=== PATIENT | female | born 1990 | race Caucasian/White ===

== ENCOUNTER 2023-02-23 15:01 | Outpatient (CLI) | payer BC, SELFPAY ==
--- NOTE | 2023-02-23 15:00 | CRLHL7_ITS ---
For Patients: As a result of the Century Cures Act, medical imaging exams and procedure reports are released immediately into your electronic medical record. You may view this report before your referring provider. If you have questions, please contact your health care provider. INDICATION: Bleeding and passing clots in early . TECHNIQUE: Ultrasound OB pelvis endovaginal. Real-time fuentes-scale imaging of the pelvis was performed. COMPARISON: None. FINDINGS: No intrauterine gestation identified. Normal endometrial stripe thickness measuring 1 cm. There are 2 ovoid areas of heterogeneous myometrial echotexture, which could represent small fibroids, 1 is in the right anterior fundus measuring 2.5 cm and the other is in the left posterior fundus measuring 1.9 cm. The anterior fibroid exerts mild mass effect on the endometrium. The posterior fibroid is myometrial. Normal ovaries. The right ovary measures 4.5 x 2.5 x 3.3 cm and the left ovary measures 2.8 x 1.4 x 2.9 cm. No significant free fluid. IMPRESSION: No intrauterine gestation identified. Normal endometrial stripe thickness. No adnexal mass or free fluid. Probable 2 fibroids within the uterus, as described above. Dictated by Jayden Hanson MD @ 02/24/2023 1:15:17 AM (Electronically Signed)
== END 2023-02-23 15:02 | disposition home or self-care (01) ==
LOC: US 15:01
PROVIDERS: PCP Family Medicine; Visit Provider Obstetrics & Gynecology
DX: O20.9 Hemorrhage in early pregnancy, unspecified (principal); O34.10 Maternal care for benign tumor of corpus uteri, unspecified trimester; Z3A.00 Weeks of gestation of pregnancy not specified
CPT/HCPCS: 76817; 84702; 86850; 86900; 86901

== ENCOUNTER 2023-02-27 15:36 | Emergency (ER) | payer BC, SELFPAY ==
[2023-02-27] VITALS (25 sets, daily range): BP systolic 92–116; BP diastolic 60–76; PULSE 61–90; RESP 18; TEMP 36.4; O2SAT 96–100; BMI 24.0
--- NOTE | 2023-02-27 15:47 | CRLHL7_ITS ---
For Patients: As a result of the Century Cures Act, medical imaging exams and procedure reports are released immediately into your electronic medical record. You may view this report before your referring provider. If you have questions, please contact your health care provider. Indication: Fall, back pain Technique: Noncontrast CT lumbar spine Please note that all CT scans at this facility use dose modulation, iterative reconstruction, and/or weight-based dosing when appropriate to reduce radiation dose to as low as reasonably achievable. Comparison: None Findings: No fracture. Mild bulging of the L4-5 disc without foraminal stenosis. No paraspinal mass. No pars defect or spondylolisthesis. Spinous processes are intact as are the transverse processes. Impression: No lumbar spine fracture. Please note that all CT scans at this facility use dose modulation, iterative reconstruction, and/or weight-based dosing when appropriate to reduce radiation dose to as low as reasonably achievable. Dictated by Samir Cain MD @ 02/27/2023 4:20:43 PM (Electronically Signed)
--- NOTE | 2023-02-27 15:50 | CRLHL7_ITS ---
For Patients: As a result of the Century Cures Act, medical imaging exams and procedure reports are released immediately into your electronic medical record. You may view this report before your referring provider. If you have questions, please contact your health care provider. Indication: fall and R hip, pelvis pain Technique: Postcontrast CT abdomen and pelvis. 62 cc Isovue 370 intravenous contrast. Please note that all CT scans at this facility use dose modulation, iterative reconstruction, and/or weight-based dosing when appropriate to reduce radiation dose to as low as reasonably achievable. Comparison: Pelvic ultrasound 02/23/2023 Findings: Lung bases are clear. No free air. There is a small cyst or hemangioma within the left hepatic lobe measuring 7 millimeters. Normal pancreas, spleen, adrenal glands, kidneys and gallbladder. No bowel obstruction or excess pelvic free fluid. Uterine fibroids again noted. Collapsing right ovarian cyst in the posterior cul-de-sac. Bladder normal. No fracture. Impression: No traumatic injury to the abdomen or pelvis. Please note that all CT scans at this facility use dose modulation, iterative reconstruction, and/or weight-based dosing when appropriate to reduce radiation dose to as low as reasonably achievable. Dictated by Samir Cain MD @ 02/27/2023 4:26:52 PM (Electronically Signed)
[2023-02-27] MEDS: LORazepam 2 MG/ML inj 0.5 MG IVP (16:17)
[2023-02-27] MEDS: 0.9 % SODIUM CHLORIDE 1000 ml 1,000 ML IV (16:18)
[2023-02-27] MEDS: fentaNYL 100 MCG/2 ML inj 50 MCG IVP (16:18)
[2023-02-27 16:54] LABS: Appearance Urine Clear (Clear); Bilirubin Urine Negative (Negative); Blood Urine 2+ (Negative); Color Urine Yellow (Yellow); Glucose Urine Negative (Negative); Ketones Urine Negative (Negative); Leukocyte Esterase Urine Trace (Negative); Nitrite Urine Negative (Negative); Protein Urine Negative (Negative); Urobilinogen Urine 0.2 (0.2-1.0); pH Urine 7.5 (5.0-8.5)
[2023-02-27 17:25] LABS: RBC Urine 0-2 (0-2); WBC Urine 0-2 (0-5)
[2023-02-27] MEDS: KETOROLAC 30 MG/ML inj IVP (17:50)
--- NOTE | 2023-02-27 18:45 | ED_ITS ---
HPI - General Adult General Chief complaint: Fall/Minor Trauma Stated complaint: Fell off ladder Time Seen by Provider: 02/27/23 15:47 History of Present Illness HPI narrative: Fell approx 8ft from 6 ft ladder. c/o right hip and back pain 32-year-old woman brought by to emergency department where upon entry trauma team activation is called. She is observed to be breathing easily in transfers gingerly to exam bed. Clearly uncomfortable in the right side. Sounds as though she fell from a ladder she estimates about 8 ft up while painting. Fell onto the right-side injuring elbow in the process as well. Not having difficulty breathing. Mov ement continues to hurt. She denies striking her head nor was there a loss of consciousness. Mild nausea comes and goes. Initially does not feel she needs anything for pain or nausea. Recent health history includes spontaneous miscarriage. Denies abdominal pain. Does have some pain in the right hip and low back, right elbow as noted. Past medical allergies medications reviewed. Related Data Home Medications Medication Instructions Recorded Confirmed cetirizine 10 mg tablet 10 mg PO DAILY 06/24/22 02/23/23 Previous Rx's Medication Instructions Recorded fluticasone propionate 50 2 spray intranasal QDAY #16 grams 06/24/22 mcg/actuation nasal spray,suspension Allergies Allergy/AdvReac Type Severity Reaction Status Date / Time No Known Allergies Allergy Unknown Verified 02/23/23 16:15 Review of Systems Status of ROS: Reports: 6 or more systems reviewed and unremarkable except as noted in History and below [facility] Medical History Sprain of ankle ?S93.409A - Sprain of unspecified ligament of unspecified ankle, initial e ncounter (ICD-10) Second degree perineal laceration during delivery ?O70.1 - Second degree perineal laceration during delivery (ICD-10) Normal spontaneous vaginal delivery ?O80 - Encounter for full-term uncomplicated delivery (ICD-10) History of fracture of clavicle ?Z87.81 - Personal history of (healed) traumatic fracture (ICD-10) Surgical History History of adenoidectomy (1997) ?Z90.89 - Acquired absence of other organs (ICD-10) Family History Aunt Thyroid disease Other Cancer Social History Smoking Status: Never smoker Do you use any of these nicotine containing products: None Second hand tobacco smoke exposure: No How often do you have a drink containing alcohol: never AUDIT-C Alcohol total score: 0 Non-prescribed substance use: denies use Little interest or pleasure in doing things: not at all Feeling down, depressed, or hopeless: several days service: No Exam Narrative: Exam Narrative: Initial vitals are noted. Breathing easily with open airway No evidence of bleeding on her person other than mild superficial scrape at the right elbow. GCS of 15 with brisk and reactive pupils. She is moving all extremities with what I think is full strength but soreness to transfer is noted this bears weight more on the right leg. She is a little tremulous head looks to be atraumatic. Becomes tearful acknowledging her recent miscarriage. Neck is supple nontender. She does not have tenderness in the midback until just above the sacrum where she is generally sore in these areas. I do not see deformity swelling or erythema. No pain to palpation over the clavicles or shoulder her upper chest. Abdomen is soft nontender no indication of injury. No pain to palpation or indication of injury on her extremities which are well perfused, until right elbow where there is an evolving bruise/hematoma on the medial aspect. She extend and flex without significant pain and supinates and rotates the forearm here without notable pain. Most pain is to palpation of this bruise. Pelvis is a little sore to palpation over the right hip area generally. There is a proud/scarred tissue at the right hip noninflamed. Heart with regular rate and rhythm without murmur rub or gallop. Const: Vital Signs, click to edit/add: Vital Signs - 24 hr 02/27/23 15:45 02/27/23 16:21 02/27/23 16:22 Temperature 97.6 F Pulse Rate 86 83 Respiratory Rate 18 Blood Pressure 99/69 Blood Pressure [Ri ght Upper Arm] 102/76 Pulse Oximetry 100 100 100 Oxygen Delivery Me thod Room Air 02/27/23 16:30 02/27/23 16:31 02/27/23 16:32 Temperature Pulse Rate 66 64 63 Respiratory Rate Blood Pressure 106/73 Blood Pressure [Ri ght Upper Arm] Pulse Oximetry 100 100 100 Oxygen Delivery Me thod 02/27/23 16:40 02/27/23 16:41 02/27/23 16:52 Temperature Pulse Rate 66 90 Respiratory Rate Blood Pressure 108/71 Blood Pressure [Ri ght Upper Arm] Pulse Oximetry 100 99 Oxygen Delivery Me thod 02/27/23 16:54 02/27/23 17:00 02/27/23 17:01 Temperature Pulse Rate 71 72 66 Respiratory Rate Blood Pressure 116/69 99/63 Blood Pressure [Ri ght Upper Arm] Pulse Oximetry 100 100 100 Oxygen Delivery Me thod 02/27/23 17:02 02/27/23 17:10 02/27/23 17:11 Temperature Pulse Rate 64 61 77 Respiratory Rate Blood Pressure 106/68 Blood Pressure [Ri ght Upper Arm] Pulse Oximetry 100 100 100 Oxygen Delivery Me thod 02/27/23 17:12 02/27/23 17:20 02/27/23 17:21 Temperature Pulse Rate 66 65 67 Respiratory Rate Blood Pressure 104/68 Blood Pressure [Ri ght Upper Arm] Pulse Oximetry 100 100 99 Oxygen Delivery Me thod 02/27/23 17:30 02/27/23 17:31 02/27/23 17:32 Temperature Pulse Rate 70 70 76 Respiratory Rate Blood Pressure 110/60 Blood Pressure [Ri ght Upper Arm] Pulse Oximetry 99 99 98 Oxygen Delivery Me thod 02/27/23 17:40 02/27/23 17:41 02/27/23 17:50 Temperature Pulse Rate 77 77 81 Respiratory Rate Blood Pressure 107/64 Blood Pressure [Ri ght Upper Arm] Pulse Oximetry 96 97 97 Oxygen Delivery Me thod 02/27/23 17:51 Temperature Pulse Rate 75 Respiratory Rate Blood Pressure 92/68 Blood Pressure [Ri ght Upper Arm] Pulse Oximetry 99 Oxygen Delivery Me thod Course Vital Signs Vital signs: Initial Vital Signs Temperature 97.6 F 02/27/23 15:45 Temperature Source Temporal Artery Scan 02/27/23 15:45 Respiratory Rate 18 02/27/23 15:45 Blood Pressure 102/76 02/27/23 15:45 Blood Pressure Mean 84 02/27/23 15:45 Blood Pressure Position Standing 02/27/23 15:45 Pulse Oximetry 100 02/27/23 15:45 Oxygen Delivery Method Room Air 02/27/23 15:45 Vital Signs Temperature 97.6 F 02/27/23 15:45 Respiratory Rate 18 02/27/23 15:45 Blood Pressure 102/76 02/27/23 15:45 Pulse Oximetry 100 02/27/23 15:45 Oxygen Delivery Method Room Air 02/27/23 15:45 Temperature 97.6 F 02/27/23 15:45 Pulse Rate 75 02/27/23 17:51 Respiratory Rate 18 02/27/23 15:45 Blood Pressure 92/68 02/27/23 17:51 Pulse Oximetry 99 02/27/23 17:51 Oxygen Delivery Method Room Air 02/27/23 15:45 Medical Decision Making MDM Narrative Medical decision making narrative: Given mechanism it do think some imaging is necessary. I do not suspect that has significant internal hemorrhage and will be sending for contrasted CT scan here. IV is established. Receives a L normal saline. CT lumbar spine and abdomen pelvis with contrast. Analysis as well. Elbow given painless supination, pronation, flexion and extension I think is unlikely to have a fracture. She is in agreement with deferring imaging here. Does later request some pain medication. Ordered for 0.5 mg lorazepam and 50 mcg of fentanyl. This does help pain pain returns and shortly before departure is given IV ketorolac as well. Overall is improved acknowledges that she is going be very sore. Imaging of lumbar spine and contrasted abdomen pelvis notable for mildly bulging disc at L4-5, collapsing ovarian cyst and small liver cyst or hemangioma. No traumatic bleeding or otherwise was identified nor was there any bony abnormality. Overall improved during time in emergency department but still sore. I suspect that there are some muscle and ligamentous strain/sprains not clearly identified at this point. See patient discharge plan Lab Data Lab results reviewed: Yes I reviewed the patient's lab results Labs: Lab Results 02/27/23 Range/Units 16:47 Urine Color Yellow (Yellow) Urine Appearance Clear (Clear) Urine pH 7.5 (5.0-8.5) Ur Specific [place] 1.010 (1.000-1.030) Urine Protein Negative (Negative) Urine Glucose (UA) Negative (Negative) Urine Ketones Negative (Negative) Urine Blood 2+ A (Negative) Urine Nitrite Negative (Negative) Urine Bilirubin Negative (Negative) Urine Urobilinogen 0.2 (0.2-1.0) Ur Leukocyte Esterase Trace A (Negative) Urine RBC 0-2 (0-2) Urine WBC 0-2 (0-5) Ur Squamous Epith Cells None (None-Few) Urine Bacteria None (None) Critical Care Time Critical Care Time Critical Care Time: Yes Attestation: The patient required my highest level preparedness to intervene emergently and I personally spent this critical care time directly and personally managing the patient. This critical care time included: Obtaining a history; Examining the patient; Pulse oximetry; Ordering and reviewing of studies; Arranging urgent treatment with development of a management plan; Evaluation of patients response to treatment; Frequent reassessment discussions with other providers. This critical care time was performed to assess and manage the high probability of imminent life-threatening deterioration that could result in multiorgan failure. It was exclusive of separate billable procedures and treating other patients and teaching time. Total Critical Care Time in Minutes: 35 Discharge Plan Discharge Clinical Impression: Contusion, Fall Patient Disposition: Home w/ Parent or Adult Condition: Stable Additional Instructions: Over the next few days I would ice the areas that hurt 2 to 3 times day if possible. I think any time you want to visit your chiropractic clinic, that would be fine. Do your best to stretch a few times daily as well. Can take up to 800 mg of ibuprofen or up to 1000 mg of acetaminophen per dose. Remember that each tablet of Percocet from [facility] contains 325 mg of acetaminophen. Follow-up regarding that elbow if simply not better in the next week to 10 days. Might want to be sure to pad the inside of that elbow or protect somehow. Prescriptions: No Action cetirizine 10 mg tablet 10 mg PO DAILY fluticasone propionate 50 mcg/actuation spray,suspension 2 spray intranasal QDAY Qty: 16 0RF Rx Instructions: administer into each nostril Follow Up/Referrals: Nathen Greenwood MD [Primary Care Provider] - Stand Alone Forms: [employer] Info Instructions
== END 2023-02-27 17:59 | disposition home or self-care (01) ==
PROVIDERS: Emergency Provider Family Medicine; PCP Family Medicine
DX: S30.0XXA Contusion of lower back and pelvis, initial encounter (principal); S50.01XA Contusion of right elbow, initial encounter; W11.XXXA Fall on and from ladder, initial encounter
CPT/HCPCS: 72131; 74177; 81001; 96361; 96374; 96375; 99284; 99291; J1885; J2060; J3010; J7030; Q9967

== ENCOUNTER 2023-07-20 09:45 | Outpatient (RCR) | payer BC, SELFPAY | END 2023-08-02 09:01 | disposition home or self-care (01) | PROVIDERS: PCP Family Medicine; Visit Provider Family Medicine | DX: M25.551 Pain in right hip (principal); M25.552 Pain in left hip; M99.04 Segmental and somatic dysfunction of sacral region; R53.1 Weakness; Z51.89 Encounter for other specified aftercare | CPT/HCPCS: 97110; 97140; 97161; 97163 ==

== ENCOUNTER 2023-11-09 10:18 | Outpatient (CLI) | payer BC, SELFPAY ==
[2023-11-09 15:47] LABS: Chlamydia DNA Amplified* NOT DETECTED (No Detected); GC DNA Amplified* NOT DETECTED (No Detected)
== END 2023-11-09 10:19 | disposition home or self-care (01) ==
PROVIDERS: PCP Family Medicine; Visit Provider Physician Assistant
DX: Z11.3 Encounter for screening for infections with a predominantly sexual mode of transmission (principal)
CPT/HCPCS: 86592; 86703; 86803; 87340; 87491; 87591

== ENCOUNTER 2024-02-08 09:27 | Outpatient (CLI) | payer BC, SELFPAY | END 2024-02-08 09:28 | disposition home or self-care (01) | LOC: NFLDREF 02-09 06:36 | PROVIDERS: PCP Family Medicine; Referring Provider Family Medicine; Visit Provider Registered Nurse | DX: Z13.1 Encounter for screening for diabetes mellitus (principal); Z13.29 Encounter for screening for other suspected endocrine disorder; Z83.49 Family history of other endocrine, nutritional and metabolic diseases | CPT/HCPCS: 82947; 84443 ==

== ENCOUNTER 2025-02-06 12:22 | Outpatient (CLI) | payer BC, SELFPAY ==
[2025-02-06 18:36] LABS: Bacterial Vaginosis* Negative (Negative); Candida glab/krus NOT DETECTED (No Detected); Candida species NOT DETECTED (No Detected); Trichomonas vaginalis NOT DETECTED (No Detected)
[2025-02-06 19:03] LABS: Chlamydia DNA Amplified* NOT DETECTED (No Detected); GC DNA Amplified* NOT DETECTED (No Detected)
[2025-02-08 06:23] LABS: HPV Source Cervix; HPV, High Risk by TMA Not Detected
== END 2025-02-06 12:23 | disposition home or self-care (01) ==
PROVIDERS: PCP Family Medicine; Visit Provider Registered Nurse
DX: Z11.3 Encounter for screening for infections with a predominantly sexual mode of transmission (principal); Z12.4 Encounter for screening for malignant neoplasm of cervix; Z13.6 Encounter for screening for cardiovascular disorders
CPT/HCPCS: 80061; 81513; 86592; 86703; 86803; 87340; 87481; 87491; 87591; 87624; 87625; 87661; 88141; 88142

== ENCOUNTER 2025-03-18 19:31 | Emergency (ER) | payer BC, SELFPAY ==
--- OUTSIDE RECORDS SUMMARY | 2025-03-18 19:33 | XMS_ITS | Clinical Summary ---
Author Organization [facility] Address [address] [place] [id number] Care Team Providers Care Bread Icer Name Role Phone Pcp, No Primary Care Provider Unavailabl e Allergies Active Allergy Reactions Criticality Noted Date Comments Homeopathic Products 09/30/2009 Medications Breast Pump - Rental HOME USE 0 08/06/2018 Active vitamin-folic acid 1 mg ( RX) tablet/capsuleIn dications:Well adult exam Take 1 tablet by mouth once daily. 0 06/27/2019 Active Immunizations Immunization Administration Dates Next Due DTP 07/23/1994, 1,01/31/1990,1989 ,1989 HIB PRP-T (ActHIB,Hiberix) 10/21/1991 Hepatitis A (Peds) 12/05/1999,04/04/1999 Hepatitis B (Peds) 12/05/1999,05/15/1999, 999 Influenza, IIV3 (Age >=3 years) 09/30/2009 MMR 03/22/2002,12/14/1990 Meningococcal Vaccine (Menomune) 02/21/2010 Oral Polio Vaccine 07/23/1994,03/03/1991, 990,1989 Td (Age >=7 Years) 03/20/2004 Tdap 02/21/2010 Varicella Vaccine 09/28/2007,08/31/1997 Family History Medical History Relation Name Comments Good Health Brother 2 Good Health Father Good Health Mother Relation Name Status Comments Brother 1 Alive Brother 2 Father Alive Mother Alive Social History Tobacco Use Types Packs/Day Years Used Date Smoking Tobacco: Never Smokeless Tobacco: Never Tobacco Cessation:Counseling Given: Yes Alcohol Use Standard Drinks/Week Comments Yes 0 (1 standard drink = 0.6 oz pur e alcohol) Comments No Sex and Gender Information Value Date Recorded Sex Assigned at Not on file Legal Sex Female 5:23 AM 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 Gender Identity Not on file Sexual Orientation Not on file Obstetrics History Last Filed Vital Signs Vital Sign Reading Time Taken Comments Blood Pressure 106/64 06/27/2019 9:33 AM CDT Pulse 86 06/27/2019 9:33 AM CDT Temperature 36.9 C (98.4 F) 02/21/2010 1:49 PM CDT Respiratory Rate 10 06/27/2019 9:33 AM CDT Oxygen Saturation 97% 06/27/2019 9:33 AM CDT Inhaled Oxygen Concentration - - Weight 54.4 kg (120 lb) 06/27/2019 9:33 AM CDT Height 156.2 cm (5' 1.5) 06/27/2019 9:33 AM CDT Body Mass Index 22.31 06/27/2019 9:33 AM CDT Plan of Treatment Health Maintenance Due Date Last Done Comments Depression screening for age 12+ 2001 HIV for age 15-65 2004 Hepatitis C screening for ag e 18-79 2007 Tetanus booster 02/22/2020 02/21/2010, 03/20/2004 BMI (ht and wt on same day) for age 18+ 06/27/2020 06/27/2019 Pap test for age 21-65 10/02/2023 0, 10/02/2020 COVID-19 vaccine series ( season) 2024 Influenza Vaccine (Season Ended) 2025 09/30/2009 Hepatitis B series for 19+ Completed 12/05, 05/15/1999, 04/04/1999 Tdap Completed 02/21/2010 Pneumococcal series for age 6-49 Aged Out No longer eligible b ased on patient's age to complete this topic Procedures Procedure Name Priority Date/Time Associated Diagnosis Comments PIERCING SPECIALIST THIN PREP PAP SCREEN IMAGED Routine 10/02/2020 3:45 PM 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 from Last 3 Months or Most Recently Relevant to Health Maintenance Results * PIERCING SPECIALIST THIN PREP PAP SCREEN IMAGED (10/02/2020 3:45 PM 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) Case Report Gynecologic Cytology Report Case: [id number] Authorizing Provider: Lin Ryan Collected: 10/02/2020 1545 MD Reny Ordering Location: [facility] Received: 10/03/2020 1820 First Screen: Moi Shrestha Specimen: PIERCING SPECIALIST ThinPrep Vial Screening, Cervical/Vaginal 10/15/2020 12:01 PM 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 [place] [employer] [facility] INTERPRETATION/ RESULT NEGATIVE FOR INTRAEPITHELIAL LESION OR MALIGNANCY (NIL) (none) 10/15/2020 12:01 PM 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 [facility] at 1201 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 SPECIMEN ADEQUACY Satisfactory for evaluation No endocervical component seen 10/15/2020 12:01 PM 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 [facility] ENTR[facility] HPV REQUEST HPV and PAP 10/15/2020 12:01 PM 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 [facility] Date of LMP 10/01/2020 10/15/2020 12:01 PM 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 [facility] Last Pap Date 01/28/2018 10/15/2020 12:01 PM 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 [facility] [place] [employer] [place] [facility] EN[facility] Last Pap Result NIL 0 12:01 PM 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 [facility] [employer] [place] [facility] ENTRAL LAB[facility] Additional Information 10/15/2020 12:01 PM 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 [facility] [employer] [place] [facility] ENTRAL LABORATORY Comment: Interpreted at [facility] - [address] [place] [address], [place] [address] Automated Review Successful 10/15/2020 12:01 PM 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 [facility] ENTR[facility] Comment:Specimen processed s uccessfully by automated senior dot net developer device, ThinPrep Imaging System, [employer] ANCILLARY TESTING PIERCING SPECIALIST HPV Ordered, Please see separate report 10/15/2020 12:01 PM 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 [facility]TR[facility] Note The pap test is a screening technique, not a diagnostic procedure. It is used primarily to screen for squamous cancers and precursor lesions. Published studies have shown that it is subject to both false negative and false positive results. The pap test should not be used as the sole means to diagnose or exclude pre-malignant and malignant lesions. 10/15/2020 12:01 PM 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 [facility] Other (Cervical/Vagina l) 10/02/2020 3:45 PM 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 10/03/2020 6:20 PM 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 us Lin Ryan MD PATHOLOGY/CYTOLOGY Final Result [facility] [address] [place] [address], [place] from Last 3 Months or Most Recently Relevant to Health Maintenance Insurance [facility] Care Teams Bread Icer Relationship Specialty Start Date End Date Pcp, No . PCP - General 12/05/15
[2025-03-18 19:49] VITALS: BP 110/83; PULSE 83; RESP 16; O2SAT 100; BMI 21.9
--- NOTE | 2025-03-18 20:04 | ED_ITS ---
HPI - General Adult General Chief complaint: Extremity Pain/Injury, Lower Stated complaint: Hip Pain Time Seen by Provider: 03/18/25 19:35 History of Present Illness HPI narrative: This 34-year-old female comes in with severe back pain in her low back radiating down her whole left leg. She does have a prior history of lumbar radiculopathy. She states that she ran a half marathon yesterday and did very well but now has developed these symptoms. She has difficulty getting in any kind of position where she gets some relief. She does not report any other injury event. Related Data Previous Rx's ?Medication ?Instructions ?Recorded ketorolac 10 mg tablet 10 mg PO TID 5 days #15 tabs 03/18/25 Allergies Allergy/AdvReac Type Severity Reaction Status Date / Time No Known Allergies Allergy Unknown Verified 03/18/25 19:51 Review of Systems Status of ROS: Reports: 10 or more systems reviewed and unremarkable except as noted in History and below Narrative: Constitutional: No fevers, no weight gain or loss. Eyes: No discharge. No vision changes. HENT: No congestion, no sore throat, no ear pain. Cardiovascular: No chest pain, no palpitations. Respiratory: No shortness of breath, no wheezes, no cough. Gastrointestinal: No abdominal pain, no vomiting, no diarrhea. Genitourinary: No dysuria, no hematuria. Musculoskeletal: Normal range of motion. Low back pain radiating down the left leg. Skin: No rashes, no pruritis. Neurological: No dizziness, weakness, sensory change, speech change. Endo/Heme/Allergies: No bruising or bleeding. No polydipsia. Pysch: no suicidality, no anxiety, no insomnia. All other systems reviewed and are negative. [facility] Medical History Acute left otitis media ?H66.92 - Otitis media, unspecified, left ear (ICD-10) Bilateral conjunctivitis ?H10.9 - Unspecified conjunctivitis (ICD-10) Complete spontaneous ?O03.9 - Complete or unspecified spontaneous without complication (ICD-10) Sprain of ankle ?S93.409A - Sprain of unspecified ligament of unspecified ankle, initial encounter (ICD-10) Second degree perineal laceration during delivery ?O70.1 - Second degree perineal laceration during delivery (ICD-10) Normal spontaneous vaginal delivery ?O80 - Encounter for full-term uncomplicated delivery (ICD-10) History of fracture of clavicle ?Z87.81 - Personal history of (healed) traumatic fracture (ICD-10) Surgical History History of adenoidectomy (1997) ?Z90.89 - Acquired absence of other organs (ICD-10) Family History Aunt Thyroid disease Other Cancer Social History What is your current living situation?: I presently have a place to live Problems where you live: no known problems In the past 12 months, utilities in danger of being shut off: no In past 12 months, lack of transportation kept you from medical appts, meetings, work, or getting things needed for daily living: no In the past 12 mos, have been you worried that your food would run out before you had money to buy more?: never true In the past 12 mos, the food you bought just didn't last and you didn't have money to buy more?: never true Smoking Status: Never smoker Do you use any of these nicotine containing products: None Second hand tobacco smoke exposure: No How often do you have a drink containing alcohol: never AUDIT-C Alcohol total score: 0 Non-prescribed substance use: denies use How often does anyone, including family, friends and others, physically hurt you : never How often does anyone, including family, friends and others, insult or talk down to you: never How often does anyone, including family, friends and others, threaten you with harm: never How often does anyone, including family, friends and others, scream or curse at you: never service: No Exam Narrative: Exam Narrative: Constitutional: Well-developed, well-nourished, no acute distress. HEENT: Normocephalic, atraumatic. Neck: Normal range of motion. Nontender. Supple. Heart: Regular. No murmurs. Normal rate. Intact distal pulses. Lungs: Clear to auscultation. No chest discomfort. No wheezes, rhonchi, or rales. Abdomen: Normal bowel sounds. Nontender. No rebound tenderness. Genitalia: Deferred. Back: No midline tenderness. Pain in the left lower back radiating down the left leg typical of a lumbar radiculopathy. Extremities: Normal range of motion. No injury. Skin: Intact. No rash. Warm. No erythema or pallor. Neurologic: No altered sensation. No weakness. Alert and oriented. Psychiatric: No suicidality. No anxiety or depression. No insomnia. Nursing notes and vitals signs are reviewed. Const: Vital Signs, click to edit/add: Vital Signs - 24 hr 03/18/25 19:49 Pulse Rate [Pulse Oximeter] 83 Respiratory Rate 16 Blood Pressure [Le ft Upper Arm] 110/83 Pulse Oximetry 100 Oxygen Delivery Me thod Room Air Course Vital Signs Vital signs: Initial Vital Signs Pulse Rate 83 03/18/25 19:49 Respiratory Rate 16 03/18/25 19:49 Blood Pressure 110/83 03/18/25 19:49 Blood Pressure Mean 92 03/18/25 19:49 Blood Pressure Position Sitting 03/18/25 19:49 Pulse Oximetry 100 03/18/25 19:49 Oxygen Delivery Method Room Air 03/18/25 19:49 Vital Signs Pulse Rate 83 03/18/25 19:49 Respiratory Rate 16 03/18/25 19:49 Blood Pressure 110/83 03/18/25 19:49 Pulse Oximetry 100 03/18/25 19:49 Oxygen Delivery Method Room Air 03/18/25 19:49 Pulse Rate 83 03/18/25 19:49 Respiratory Rate 16 03/18/25 19:49 Blood Pressure 110/83 03/18/25 19:49 Pulse Oximetry 100 03/18/25 19:49 Oxygen Delivery Method Room Air 03/18/25 19:49 Medical Decision Making MDM Narrative Medical decision making narrative: This patient has a history of lumbar radiculopathy and now has recent flare-up of similar symptoms. There was no recent injury event that requires imaging at this time. The patient did receive an intramuscular injection of morphine 10 mg. She received [facility] prescriptions for [place] and Flexeril. I did also provide a prescription from her pharmacy for Toradol. She has plans for follow- up with her primary physician. Discharge Plan Discharge Clinical Impression: Acute left lumbar radiculopathy Patient Disposition: Home, Self-Care Condition: Stable Additional Instructions: Take medication as needed and indicated. Follow up with primary physician or consider connecting with our spine clinic. Call [phone] for appointment if desired. Return if worsening. Prescriptions: New ketorolac 10 mg tablet 10 mg PO TID 5 Days Qty: 15 0RF Follow Up/Referrals: Nathen Greenwood MD [Primary Care Provider, Family Practice] Stand Alone Forms: [facility] Info Instructions
[2025-03-18] MEDS: MORPHINE 10 MG/ML inj IM (20:08)
[2025-03-18 20:28] VITALS: BP 92/58; PULSE 60; O2SAT 100
[2025-03-18 20:40] VITALS: BP 99/63; PULSE 73; O2SAT 100
[2025-03-18 20:50] VITALS: BP 93/63; PULSE 60; O2SAT 100
== END 2025-03-18 21:00 | disposition home or self-care (01) ==
PROVIDERS: Emergency Provider Emergency Medicine Emergency Medical Services; PCP Family Medicine
DX: M54.16 Radiculopathy, lumbar region (principal)
CPT/HCPCS: 94761; 96372; 99283; 99284; J2270

== ENCOUNTER 2025-03-28 06:46 | Emergency (ER) | payer BC, SELFPAY ==
--- OUTSIDE RECORDS SUMMARY | 2025-03-28 06:48 | XMS_ITS | Clinical Summary ---
Author Organization [employer] [facility] [employer] [facility] Address [address] [place] [id number] Care Team Providers Care Engineering Patternmaker Name Role Phone Pcp, No Primary Care [...] on file Legal Sex Female 5:23 AM NEWS ANCHOR Gender Identity Not on file Sexual Orientation [...] Procedure Name Priority Date/Time Associated Diagnosis Comments SPONSORSHIP COORDINATOR THIN PREP PAP SCREEN IMAGED Routine 10/02/2020 3:45 PM NEWS ANCHOR from Last 3 Months or Most Recently Relevant to Health Maintenance Results * SPONSORSHIP COORDINATOR THIN PREP PAP SCREEN IMAGED (10/02/2020 3:45 PM NEWS ANCHOR) Case Report Gynecologic Cytology Report Case: [id number] Authorizing Provider: Lin Ryan Collected: 10/02/2020 1545 MD Reny Ordering Location: [facility] Received: 10/03/2020 1820 First Screen: Moi Shrestha Specimen: SPONSORSHIP COORDINATOR ThinPrep Vial Screening, Cervical/Vaginal 10/15/2020 12:01 PM NEWS ANCHOR [employer] [facility] INTERPRETATION/ RESULT NEGATIVE FOR INTRAEPITHELIAL LESION OR MALIGNANCY (NIL) (none) 10/15/2020 12:01 PM NEWS [facility] at 1201 NEWS ANCHOR SPECIMEN ADEQUACY Satisfactory for evaluation No endocervical component seen 10/15/2020 12:01 PM NEWS ANCHOR [facility] [employer] [facility] HPV REQUEST HPV and PAP 10/15/2020 12:01 PM NEWS ANCHOR [facility] Date of LMP 10/01/2020 10/15/2020 12:01 PM NEWS ANCHOR [facility] [employer] [facility] Last Pap Date 01/28/2018 10/15/2020 12:01 PM NEWS ANCHOR [facility] Last Pap Result NIL 0 12:01 PM NEWS ANCHOR [facility] Additional Information 10/15/2020 12:01 PM NEWS ANCHOR [facility] [employer] Comment: Interpreted at [facility] - [address] [place] [address], [place] [address] Automated Review Successful 10/15/2020 12:01 PM NEWS ANCHOR [facility] [employer] [facility] Comment:Specimen processed s uccessfully by automated x ray technologist device, ThinPrep Imaging System, [employer] ANCILLARY TESTING SPONSORSHIP COORDINATOR HPV Ordered, Please see separate report 10/15/2020 12:01 PM NEWS ANCHOR [facility] [employer] [facility] Note The pap test is [...] pre-malignant and malignant lesions. 10/15/2020 12:01 PM NEWS ANCHOR [facility] Other (Cervical/Vagina l) 10/02/2020 3:45 PM NEWS ANCHOR 10/03/2020 6:20 PM NEWS ANCHOR us Lin Ryan MD PATHOLOGY/CYTOLOGY Final Result [facility] [address] [place] [address], [place] from Last 3 Months or Most Recently Relevant to Health Maintenance Insurance [facility] Care Teams Engineering Patternmaker Relationship Specialty Start Date End Date Pcp, No . PCP - General 12/05/15
[2025-03-28 06:55] VITALS: BP 111/81; PULSE 81; RESP 18; TEMP 36.9; O2SAT 97; BMI 22.7
--- NOTE | 2025-03-28 07:18 | CRLHL7_ITS ---
For Patients: As a result of the Century Cures Act, medical imaging exams and procedure reports are released immediately into your electronic medical record. You may view this report before your referring provider. If you have questions, please contact your health care provider. Indication: Left leg pain Technique: Multiplanar, multisequence, MRI of the lumbar spine, obtained without contrast. Comparison: CT lumbar spine 02/27/2023 Findings: The lumbar lordosis is preserved. No significant spondylolisthesis. Vertebral body heights are grossly maintained. No evidence of acute fracture or focal compression deformity. Bone marrow signal appears within normal limits. The conus medullaris terminates at approximately L1. No suspicious findings in the prevertebral and paraspinal soft tissues. Included SI joints are unremarkable. T12-L1 through L3-L4: No neural foraminal or spinal canal stenosis. L4-L5: Disc degeneration with posterior disc bulge and left central caudal disc extrusion. Impingement of the descending left L5 nerve root. Potential impingement of the descending right L5 nerve root. Dorsal displacement of the descending left S1 nerve root. No neural foraminal or central spinal canal stenosis. Left central caudal disc extrusion, impinging the descending left L5 nerve root, dorsally displacing the descending left S1 nerve root. L5-S1: Shallow central disc protrusion. No neural foraminal or spinal canal stenosis. Impression: 1. At L4-L5, posterior disc bulge and left central caudal disc extrusion, impinging the left L5 nerve root, potentially impinging the right L5 nerve root, and dorsally displacing the left S1 nerve root. 2. At L5-S1, shallow central disc protrusion. 3. No neural foraminal or central spinal canal stenosis. Dictated by Cinthia Monroy MD @ 03/28/2025 12:17:54 PM (Electronically Signed)
[2025-03-28 07:30] VITALS: O2SAT 99
[2025-03-28] MEDS: HYDROmorphone 0.5 mg/0.5 ml inj IVP (07:47)
[2025-03-28] MEDS: ONDANSETRON 2 MG/ML inj 4 MG IVP (07:47)
[2025-03-28] MEDS: 0.9 % SODIUM CHLORIDE 500 ML 500 ML IV (07:48)
[2025-03-28 08:00] LABS: Basophils Absolute Auto 0.03 K/uL (0.00-0.30); Basophils Percent Auto 0.4 % (0.0-3.0); Eosinophils Percent Auto 1.3 % (0.0-7.0); Hematocrit 36.4 % (33.0-51.0); Immature Granulocytes Abs Auto 0.02 K/uL (0.00-0.30); Immature Granulocytes Pct Auto 0.3 %; Lymphocytes Percent Auto 19.1 % (20-44); Mean Corpuscular HGB Conc 33 gm/dL (32-36); Mean Corpuscular Hemoglobin 29 pg (26-34); Mean Corpuscular Volume 88 fL (80-100); Monocytes Percent Auto 7.2 % (0.0-11.0); Neutrophils Absolute Auto 5.54 K/uL (1.7-7.0); Neutrophils Percent Auto 71.7 % (42.0-72.0); Platelet Count* 169 K/uL (140-440); RDW Coefficient of Variation % 12.3 % (11.5-15.5); Red Blood Count 4.15 m/uL (4.00-5.20); White Blood Count* 7.73 K/uL (4.50-11.00)
[2025-03-28 08:01] LABS: Slide Review Reflex No
--- NOTE | 2025-03-28 08:06 | ED_ITS ---
HPI - General Adult General Date Seen: 03/28/25 <Ana Laura Fung MD - Last Filed: 04/10/25 17:13> Chief complaint: Extremity Pain/Injury, Lower <Ana Laura Fung MD - Last Filed: 04/10/25 17:13> Stated complaint: left leg pain- was in on Wednesday <Ana Laura Fung MD - Last Filed: 04/10/25 17:13> Time Seen by Provider: 03/28/25 07:05 <Ana Laura Fung MD - Last Filed: 04/10/25 17:13> History of Present Illness HPI narrative: Patient is a 34-year-old woman here with her mother for evaluation of left leg pain. She was here on the on the heels of having run a half marathon. She does have a history of some left sciatic type pain although she has never had severe pain previously. She had a shot of morphine on the and was discharged with [place], Toradol and Flexeril. She had been taking those medications and said she had been doing reasonably well until last night when the pain became unbearable. She says that the pain starts in the left lumbar/sacroiliac area and then in the entire left leg. She does not describe a specific distribution but it goes all the way down to her toes. She says she is unable to put any weight on the leg due to severe pain. She feels like the leg is very swollen although objectively it is not. She denies any trauma, she has not had fevers, has not had any weakness although she says that she can barely move because it is so painful. She feels best standing on her right leg leaning over the cart without any weight on her left leg. When she puts weight on the left leg it hurts in the entire left leg, she does not have any focal pain whatsoever. <Ana Laura Fung MD - Last Filed: 04/10/25 17:13> Related Data Home medications: Home Medications ?Medication ?Instructions ?Recorded ?Confirmed ibuprofen 800 mg tablet 800 mg PO Q8H PRN 04/04/25 0 04/04/25 <Ana Laura Fung MD - Last Filed: 04/10/25 17:13> Allergies/adverse reactions: Allergies Allergy/AdvReac Type Severity Reaction Status Date / Time No Known Allergies Allergy Unknown Verified 04/04/25 09:28 <Ana Laura Fung MD - Last Filed: 04/10/25 17:13> Review of Systems Status of ROS: Reports: 6 or more systems reviewed and unremarkable except as noted in History and below <Ana Laura Fung MD - Last Filed: 04/10/25 17:13> [facility] Medical History: Medical History Acute left otitis media ?H66.92 - Otitis media, unspecified, left ear (ICD-10) Bilateral conjunctivitis ?H10.9 - Unspecified conjunctivitis (ICD-10) Complete spontaneous ?O03.9 - Complete or unspecified spontaneous without complication (ICD-10) Sprain of ankle ?S93.409A - Sprain of unspecified ligament of unspecified ankle, initial encounter (ICD-10) Second degree perineal laceration during delivery ?O70.1 - Second degree perineal laceration during delivery (ICD-10) Normal spontaneous vaginal delivery ?O80 - Encounter for full-term uncomplicated delivery (ICD-10) History of fracture of clavicle ?Z87.81 - Personal history of (healed) traumatic fracture (ICD-10) <Ana Laura Fung MD - Last Filed: 04/10/25 17:13> Surgical History: Surgical History History of adenoidectomy (1997) ?Z90.89 - Acquired absence of other organs (ICD-10) <Ana Laura Fung MD - Last Filed: 04/10/25 17:13> Family History: Family History Aunt Thyroid disease Other Cancer <Ana Laura Fung MD - Last Filed: 04/10/25 17:13> Social History: Social History What is your current living situation?: I presently have a place to live Problems where you live: no known problems In the past 12 months, utilities in danger of being shut off: no In past 12 months, lack of transportation kept you from medical appts, meetings, work, or getting things needed for daily living: no In the past 12 mos, have been you worried that your food would run out before you had money to buy more?: never true In the past 12 mos, the food you bought just didn't last and you didn't have money to buy more?: never true Smoking Status: Never smoker Do you use any of these nicotine containing products: None Second hand tobacco smoke exposure: No How often do you have a drink containing alcohol: never AUDIT-C Alcohol total score: 0 Non-prescribed substance use: denies use How often does anyone, including family, friends and others, physically hurt you : never How often does anyone, including family, friends and others, insult or talk down to you: never How often does anyone, including family, friends and others, threaten you with harm: never How often does anyone, including family, friends and others, scream or curse at you: never service: No <Ana Laura Fung MD - Last Filed: 04/10/25 17:13> Exam Narrative: Exam Narrative: Vital signs reviewed In general, alert, nontoxic Head: Normocephalic, atraumatic. Eyes: Sclera clear. Pupils equal and reactive. ENT: Mucous membranes moist. Neck: Supple without adenopathy. Heart: Regular rate and rhythm without murmur. Lungs: Clear. No increased work of breathing, crackles or wheezes. Abdomen: Soft, nontender to palpation. Back: She is diffusely tender throughout the lumbar back, left hip and SI joint area. Extremities: Well perfused, pulses intact. The left leg is normal in appearance, there is no edema, erythema, rash or bruising. Pulses are equal in both legs. Neurologic: Alert, conversant. Speech fluent, face symmetric. Difficult to assess strength in the left leg due to cooperation. She does move her toes and knee when I ask but is really not willing to cooperate with strength testing otherwise because she says it is too painful. Sensation is intact. Strength in the right leg is normal. Skin: Warm, dry well perfused. Affect: Normal. <Ana Laura Fung MD - Last Filed: 04/10/25 17:13> Const: Vital Signs, click to edit/add: Vital Signs - 24 hr 03/28/25 06:55 03/28/25 07:30 03/28/25 09:15 Temperature 98.5 F Pulse Rate [Pulse Oximeter] 81 80 Respiratory Rate 18 16 Blood Pressure [Ri ght Upper Arm] 111/81 122/75 Pulse Oximetry 97 99 100 Oxygen Delivery Me thod Room Air Room Air <Ana Laura Fung MD - Last Filed: 04/10/25 17:13> Vital Signs, click to edit/add: Vital Signs - 24 hr 03/28/25 06:55 03/28/25 07:30 03/28/25 09:15 Temperature 98.5 F Pulse Rate [Pulse Oximeter] 81 80 Respiratory Rate 18 16 Blood Pressure [Ri ght Upper Arm] 111/81 122/75 Pulse Oximetry 97 99 100 Oxygen Delivery Me thod Room Air Room Air <Domingo Hess MD - Last Filed: 03/28/25 12:25> Course Course ED Course: Plan at this point is to place an IV, give some Dilaudid and Zofran and trying get her pain under better control. At this time, she presents with very diffuse leg pain which is worsened by weight-bearing and any movement, these features are not overly suggestive of radiculopathy, but she does seem to feel most comfortable leaning forward, and I wonder if she is just having difficulty determining where in the leg she is having pain. I do think it is worthwhile doing an MRI of her lumbar spine to see if she has something there to help explain her symptoms. I do not see anything in the leg that suggest this is is DVT, arterial occlusion, her symptoms do not suggest stress fracture, her joints are normal, compartments are soft, there is no evidence of any muscular injury. MRI of the lumbar spine is ordered pending at this time. She will be signed out to oncoming physician for results and disposition. <Ana Laura Fung MD - Last Filed: 04/10/25 17:13> Vital Signs Vital signs: Initial Vital Signs Temperature 98.5 F 03/28/25 06:55 Temperature Source Temporal Artery Scan 03/28/25 06:55 Pulse Rate 81 03/28/25 06:55 Respiratory Rate 18 03/28/25 06:55 Blood Pressure 111/81 03/28/25 06:55 Blood Pressure Mean 91 03/28/25 06:55 Blood Pressure Position Standing 03/28/25 06:55 Pulse Oximetry 97 03/28/25 06:55 Oxygen Delivery Method Room Air 03/28/25 06:55 Vital Signs Temperature 98.5 F 03/28/25 06:55 Pulse Rate 81 03/28/25 06:55 Respiratory Rate 18 03/28/25 06:55 Blood Pressure 111/81 03/28/25 06:55 Pulse Oximetry 97 03/28/25 06:55 Oxygen Delivery Method Room Air 03/28/25 06:55 Temperature 98.5 F 03/28/25 06:55 Pulse Rate 71 03/28/25 12:45 Respiratory Rate 16 03/28/25 12:45 Blood Pressure 99/82 03/28/25 12:45 Pulse Oximetry 99 03/28/25 12:45 Oxygen Delivery Method Room Air 03/28/25 12:45 <Ana Laura Fung MD - Last Filed: 04/10/25 17:13> Initial Vital Signs Temperature 98.5 F 03/28/25 06:55 Temperature Source Temporal Artery Scan 03/28/25 06:55 Pulse Rate 81 03/28/25 06:55 Respiratory Rate 18 03/28/25 06:55 Blood Pressure 111/81 03/28/25 06:55 Blood Pressure Mean 91 03/28/25 06:55 Blood Pressure Position Standing 03/28/25 06:55 Pulse Oximetry 97 03/28/25 06:55 Oxygen Delivery Method Room Air 03/28/25 06:55 Vital Signs Temperature 98.5 F 03/28/25 06:55 Pulse Rate 81 03/28/25 06:55 Respiratory Rate 18 03/28/25 06:55 Blood Pressure 111/81 03/28/25 06:55 Pulse Oximetry 97 03/28/25 06:55 Oxygen Delivery Method Room Air 03/28/25 06:55 Temperature 98.5 F 03/28/25 06:55 Pulse Rate 71 03/28/25 12:45 Respiratory Rate 16 03/28/25 12:45 Blood Pressure 99/82 03/28/25 12:45 Pulse Oximetry 99 03/28/25 12:45 Oxygen Delivery Method Room Air 03/28/25 12:45 <Domingo Hess MD - Last Filed: 03/28/25 12:25> Medications Administered Medications: Discontinued Medications Generic Name Dose Route Start Last Admin Trade Name Steven PRN Reason Stop Dose Admin Hydromorphone HCl 0.5 mg 03/28/25 07:18 03/28/25 07:47 Hydromorphone 0.5 Mg/0.5 Ml Inj IVP 03/28/25 07:19 0.5 mg ONCE ONE Administration Hydromorphone HCl 1 mg 03/28/25 09:07 03/28/25 09:15 Hydromorphone 0.5 Mg/0.5 Ml Inj IVP 03/28/25 09:08 1 mg ONCE ONE Administration Sodium Chloride 500 mls @ 500 mls/hr 03/28/25 07:18 03/28/25 08:38 0.9 % Sodium Chloride 500 Ml IV 03/28/25 08:17 Infused .Q1H ONE Infusion Methylprednisolone Sodium Succinate 125 mg 03/28/25 09:12 03/28/25 09:15 Methylprednisolone Sod Succ 62.5 Mg/Ml (125) IVP 03/28/25 09:13 125 mg ONCE ONE Administration Morphine Sulfate 4 mg 03/28/25 11:02 03/28/25 11:22 Morphine 4 Mg/Ml Inj IVP 03/28/25 11:03 4 mg ONCE ONE Administration Ondansetron HCl 4 mg 03/28/25 07:18 03/28/25 07:47 Ondansetron 2 Mg/Ml Inj IVP 03/28/25 07:19 4 mg ONCE ONE Administration <Ana Laura Fung MD - Last Filed: 04/10/25 17:13> Discontinued Medications Generic Name Dose Route Start Last Admin Trade Name Steven PRN Reason Stop Dose Admin Hydromorphone HCl 0.5 mg 03/28/25 07:18 03/28/25 07:47 Hydromorphone 0.5 Mg/0.5 Ml Inj IVP 03/28/25 07:19 0.5 mg ONCE ONE Administration Hydromorphone HCl 1 mg 03/28/25 09:07 03/28/25 09:15 Hydromorphone 0.5 Mg/0.5 Ml Inj IVP 03/28/25 09:08 1 mg ONCE ONE Administration Sodium Chloride 500 mls @ 500 mls/hr 03/28/25 07:18 03/28/25 08:38 0.9 % Sodium Chloride 500 Ml IV 03/28/25 08:17 Infused .Q1H ONE Infusion Methylprednisolone Sodium Succinate 125 mg 03/28/25 09:12 03/28/25 09:15 Methylprednisolone Sod Succ 62.5 Mg/Ml (125) IVP 03/28/25 09:13 125 mg ONCE ONE Administration Morphine Sulfate 4 mg 03/28/25 11:02 03/28/25 11:22 Morphine 4 Mg/Ml Inj IVP 03/28/25 11:03 4 mg ONCE ONE Administration Ondansetron HCl 4 mg 03/28/25 07:18 03/28/25 07:47 Ondansetron 2 Mg/Ml Inj IVP 03/28/25 07:19 4 mg ONCE ONE Administration <Domingo Hess MD - Last Filed: 03/28/25 12:25> Medical Decision Making MDM Narrative Medical decision making narrative: Addendum 12:[address] Lo initial note. The patient had an MRI scan of her lumbar spine that showed at L4-5 a posterior disc bulge and left central caudal disc extrusion impinging the left L5 nerve root that would match her symptoms there is some does dorsal is placed on the left S1 nerve root as well but most her symptoms see seemed to be L5 related. She has gotten some pain control with morphine. Has gotten IV steroid. I will dispense a Medrol Dosepak for her as well as Percocet. Will set up to see Dr. Valles next week Wednesday for an epidural steroid injection at the L4-5 level on the left transforaminal. In the interim they could return as needed. Position of comfort, ice to the back, no heavy lifting or aggressive activity. <Domingo Hess MD - Last Filed: 03/28/25 12:25> Lab Data Labs: Lab Results 03/28/25 Range/Units 07:45 WBC 7.73 (4.50-11.00) K/uL RBC 4.15 (4.00-5.20) m/uL Hgb 12.0 (12.0-16.0) gm/dL Hct 36.4 (33.0-51.0) % MCV 88 (80-100) fL MCH 29 (26-34) pg MCHC 33 (32-36) gm/dL RDW Coeff of Ana 12.3 (11.5-15.5) % Plt Count 169 (140-440) K/uL Neut % (Auto) 71.7 (42.0-72.0) % Lymph % (Auto) 19.1 L (20-44) % [place] % (Auto) 7.2 (0.0-11.0) % Eos % (Auto) 1.3 (0.0-7.0) % Baso % (Auto) 0.4 (0.0-3.0) % Neut # (Auto) 5.54 (1.7-7.0) K/uL Lymph # (Auto) 1.50 (0.90-2.90) K/uL [place] # (Auto) 0.60 (0.00-0.90) K/UL Eos # (Auto) 0.10 (0.00-0.50) K/uL Baso # (Auto) 0.03 (0.00-0.30) K/uL Abs Immat Gran (auto) 0.02 (0.00-0.30) K/uL Imm/Tot Granulo (auto) 0.3 % ESR 2 (2-20) mm/hr C-Reactive Protein < 0.5 L (0.5-1.0) mg/dL <Ana Laura Fung MD - Last Filed: 04/10/25 17:13> Lab Results 03/28/25 Range/Units 07:45 WBC 7.73 (4.50-11.00) K/uL RBC 4.15 (4.00-5.20) m/uL Hgb 12.0 (12.0-16.0) gm/dL Hct 36.4 (33.0-51.0) % MCV 88 (80-100) fL MCH 29 (26-34) pg MCHC 33 (32-36) gm/dL RDW Coeff of Ana 12.3 (11.5-15.5) % Plt Count 169 (140-440) K/uL Neut % (Auto) 71.7 (42.0-72.0) % Lymph % (Auto) 19.1 L (20-44) % [place] % (Auto) 7.2 (0.0-11.0) % Eos % (Auto) 1.3 (0.0-7.0) % Baso % (Auto) 0.4 (0.0-3.0) % Neut # (Auto) 5.54 (1.7-7.0) K/uL Lymph # (Auto) 1.50 (0.90-2.90) K/uL [place] # (Auto) 0.60 (0.00-0.90) K/UL Eos # (Auto) 0.10 (0.00-0.50) K/uL Baso # (Auto) 0.03 (0.00-0.30) K/uL Abs Immat Gran (auto) 0.02 (0.00-0.30) K/uL Imm/Tot Granulo (auto) 0.3 % ESR 2 (2-20) mm/hr C-Reactive Protein < 0.5 L (0.5-1.0) mg/dL <Domingo Hess MD - Last Filed: 03/28/25 12:25> Discharge Plan Discharge Clinical Impression: Left lumbar radiculopathy <Ana Laura Fung MD - Last Filed: 04/10/25 17:13> Patient Disposition: Home w/ Parent or Adult <Ana Laura Fung MD - Last Filed: 04/10/25 17:13> Condition: Improved <Ana Laura Fung MD - Last Filed: 04/10/25 17:13> Additional Instructions: Percocet and Medrol as prescribed, ice to the back for 15 minutes 3 or 4 times a day. Position of comfort but do not stay sedated seated or lying down for too long. You will receive a call from the [facility] to schedule an i njection appointment with Dr. Balderrama. <Ana Laura Fung MD - Last Filed: 04/10/25 17:13> Activity Level: Light activity <Ana Laura Fung MD - Last Filed: 04/10/25 17:13> Light activity <Domingo Hess MD - Last Filed: 03/28/25 12:25> Discharge Diet: Regular <Ana Laura Fung MD - Last Filed: 04/10/25 17:13> Regular <Domingo Hess MD - Last Filed: 03/28/25 12:25> Prescriptions: No Action ibuprofen 800 mg tablet 800 mg PO Q8H PRN <Ana Laura Fung MD - Last Filed: 04/10/25 17:13> Follow Up/Referrals: Nathen Greenwood MD [Primary Care Provider, Family Practice] <Ana Laura Fung MD - Last Filed: 04/10/25 17:13> Stand Alone Forms: MyHealth Info Instructions <Ana Laura Fung MD - Last Filed: 04/10/25 17:13>
[2025-03-28 08:30] LABS: C Reactive Protein* < 0.5 mg/dL (0.5-1.0)
[2025-03-28 09:15] VITALS: BP 122/75; PULSE 80; RESP 16; O2SAT 100
[2025-03-28] MEDS: HYDROmorphone 0.5 mg/0.5 ml inj 1 MG IVP (09:15)
[2025-03-28] MEDS: METHYLPREDNISOLONE SOD SUCC 62.5 MG/ML (125) 125 MG IVP (09:15)
[2025-03-28 09:53] LABS: Erythrocyte SedimentationRate* 2 mm/hr (2-20)
[2025-03-28] MEDS: MORPHINE 4 MG/ML INJ IVP (11:22)
[2025-03-28 12:45] VITALS: BP 99/82; PULSE 71; RESP 16; O2SAT 99
== END 2025-03-28 12:46 | disposition home or self-care (01) ==
PROVIDERS: Emergency Medicine; Emergency Provider Family Medicine; PCP Family Medicine
DX: M54.16 Radiculopathy, lumbar region (principal)
CPT/HCPCS: 36415; 72148; 85025; 85651; 86140; 94761; 96374; 96375; 99284; J1171; J2270; J2405; J2919; J7030

== ENCOUNTER 2025-05-31 09:31 | Outpatient (CLI) | payer BC, SELFPAY ==
[2025-05-31 15:28] LABS: Bacterial Vaginosis* Negative (Negative); Candida glab/krus NOT DETECTED (No Detected)
[2025-05-31 15:58] LABS: Chlamydia DNA Amplified* NOT DETECTED (No Detected); GC DNA Amplified* NOT DETECTED (No Detected)
== END 2025-05-31 09:32 | disposition home or self-care (01) ==
PROVIDERS: PCP Family Medicine; Visit Provider Registered Nurse
DX: Z01.419 Encounter for gynecological examination (general) (routine) without abnormal findings (principal); Z11.3 Encounter for screening for infections with a predominantly sexual mode of transmission
CPT/HCPCS: 81513; 87481; 87491; 87591; 87661

== ENCOUNTER 2025-06-26 09:28 | Outpatient (CLI) | payer BC, SELFPAY | END 2025-06-26 09:29 | disposition home or self-care (01) | LOC: INJ CL 09:29 | PROVIDERS: PCP Family Medicine; Visit Provider Family Medicine | DX: M54.16 Radiculopathy, lumbar region (principal); M51.26 Other intervertebral disc displacement, lumbar region | CPT/HCPCS: 64483; J1100; Q9966 ==

== ENCOUNTER 2025-09-04 08:00 | Outpatient (RCR) | payer BC, SELFPAY ==
--- NOTE | 2025-04-18 09:53 | PT.OPEX ---
PT [place] Outpatient Eval PT [facility] Outpatient Eval Start: 04/09/25 09:28 Freq: Status: Active Protocol: Document 04/09/25 09:30 KLV (Rec: 04/09/25 15:59 KLV [id number]) E-signed By Kaitlynn Wong PT Physical Therapy Outpatient Evaluation Insurance Information Recert Due Date 07/04/25 Insurance Name Medicaid,Blue Cross/Blue Shield Medical Diagnosis Low back pain with L radiculopathy Treating Diagnosis Low back pain, limited lumbar ROM, radiculopathy L, muscle weakness, dural tension Referring alma Delgado Subjective Subjective Candy reports initial injury occurred on 03/16/25. She was at the dog park when three dogs collided into her. She noted some low back discomfort but was signed up for a /2 marathon the following day and went through with the race. The race went great but by the evening the following day she had excruciating back pain and could hardly walk on her left leg. She went to the emergency department on 03/18/2025 and received Toradol [place] and Flexeril. The muscle relaxant seemed to help the most. She received a spinal manipulation at the chiropractor which flared up her symptoms to the point that she returned to the emergency department on 2024 and MRI was done showing an L4-5 disc bulge with central disc extrusion impinging on the L5 nerve root. She notes ongoing left sided low back discomfort and L LE N/T throughout her leg and dorsum of foot. She notes fairly significant ankle pain with most pain in the morning. Often has to use a crutch to get around in the morning and walk her dog. She is just taking ibuprofen at the moment. She has tried ice and heat to low back but both have seemed to flare her symptoms. Icing her ankle has helped some. She was scheduled for a cortisone injection 04/13/25 however this was canceled d /t insurance denial. 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 [employer] Objective Other/Pertinent Lumbar ROM: Objective -Flx: Just distal to patella, moderate pain, gowers sign -Ext: 15% with moderate discomfort -R Rot: 100% no pain -L Rot: 50% pinch into L side -R Sidebend: 50% pull L side -L Sidebend: 50% pinch L side SL balance: -R WNL -L unable to bear full weight SLR: + L LE Diminished to light touch throughout L distal extremity L5 distribution Hip ROM: -R WNL no pain -L WNL except ER 75% compared to R with pull into L lumbar Palpation: TTP and increased tone L lumbar paraspinals Spring test: - pain throughout lumbar vertebrae Functional Test Oswestry: 26, 52% Performed & Score Assessment Assessment/ Patient is a 34 year old female presenting to physical Impression therapy for evaluation and treatment of low back pain with L LE radiculopathy with onset of symptoms 03/16/25 following collision with 3 dogs and exacerbated the following day with running a 2 marathon. Recent imaging indicating L4-5 disc bulge with central disc extrusion impinging on the L5 nerve root. Patient presents with limited flexion and L SB/rot, dural tension, core and low back weakness, increased low back tone L>R. Patient has a preference into extension. These impairments are limiting the patients ability to walk around the block, wake in the morning without pain , stand on 1 leg to dress and bathe, sleep comfortably, return to running and playing with toddler. Patient appears motivated to participate in PT and presents with good prognosis to improve mobility, strength, proprioception and return to functional activities with skilled physical therapy intervention. Plan of Care Rehabilitation Good Potential Physical Therapy In 5 visits: Goals Patient will demonstrate full lumbar AROM with <2/10 pain in all directions in order to demonstrate improved functional mobility. Patient will be able to dress, bathe and perform all other ADLs with <2/10 pain Patient will report 50-75% improvement in radicular symptoms In 10 visits: Pt will exhibit 20% improvement on the Modified Oswestry Outcome measure to demonstrate functional improvement and progress towards goals. Patient will be able to dress, bathe and perform all other ADLs with 0/10 pain Patient will tolerate gradual return to running program Patient will report 75-100% improvement in radicular symptoms Patient will demonstrate full lumbar AROM with 0/10 pain in all directions in order to demonstrate improved functional mobility. Treatment Plan/ Dry Needling,Gait Training,Ice/Cold/Vasopneumatic,Joint Direct Interventions Mobilization,Manual Therapy,Neuromuscular Re-ed,Self- Care/Home Management,Therapeutic Activities,Therapeutic Exercises,Traction (Mechanical),Ultrasound Frequency/Duration 1x/wk for 5 weeks with additional 3-5 sessions prn based on progress Patient Will Be Completion of LTG(s),Independent w/HEP,Independently Discharged From Progressing Therapy Evaluation Billing Untimed Code 32 Treatment Minutes Complexity Low Certification Information Initial 04/09/25 Certification Date Ending Certification 07/04/25 Date Provider Signature Yes Required Provider Signature POC & Medical Necessity Shows Agreement With Physician NPI Number Write NPI# Here Physician Comment/ : Change Physician Signature Please Sign/Date Here & Date Requested
== END 2025-10-04 13:20 | disposition home or self-care (01) ==
PROVIDERS: PCP Family Medicine; Visit Provider Registered Nurse
DX: M54.16 Radiculopathy, lumbar region (principal); Z51.89 Encounter for other specified aftercare
CPT/HCPCS: 97012; 97110; 97112; 97140; 97161